=== PATIENT | male | born 1945 | race African-American/Black ===

== ENCOUNTER 2020-07-21 13:42 | Emergency (ER) | payer MEDICARE, OTHER ==
[~2020-07-21] VITALS: Ht 175.3 cm; Wt 113.4 kg
[2020-07-21 14:31] VITALS: BP 126/74
[2020-07-21] MEDS ORDERED: ASPirin 81 mg TAB PO ONE (15:00)
[2020-07-21 15:35] LABS: Basophils # (auto) 0 10 ^3/uL (0-0.2); Basophils % (auto) 0.9 % (0.0-2.0); Eosinophils # (auto) 0.3 10 ^3/uL (0-0.8); Hematocrit 43.8 % (41.0-53.0); Hemoglobin 14.5 g/dL (13.5-17.5); Lymphocytes # (auto) 2.1 10 ^3/uL (0.4-5.4); Lymphocytes % (auto) 43.2 % (10.0-50.0); Mean Corpuscular Hemoglobin 29.1 pg (28.0-32.0); Mean Corpuscular Hgb Conc. 33.2 g/dL (32.0-36.0); Mean Corpuscular Volume 87.7 fL (80.0-100.0); Monocytes # (auto) 0.6 10 ^3/uL (0-1.3); Monocytes % (auto) 12.7 % (0.0-12.0); Neutrophils # (auto) 1.8 10 ^3/uL (1.6-8.6); Neutrophils % (auto) 37.2 % (37.0-80.0); Nucleated Red Blood Cells % 0.1 %; Platelet Count (auto) 209 10^3/uL (140-450); Red Blood Cells 4.99 10^6/uL (4.5-5.90); Red Cell Distribution Width 13.6 % (11.8-14.3)
[2020-07-21 15:54] LABS: Alanine Aminotransferase 32 U/L (16-61); Albumin 3.8 g/dL (3.4-5.0); Anion Gap 4 (5-15); Aspartate Aminotransferase 15 U/L (15-37); BUN/Creatinine Ratio 13.6; Blood Urea Nitrogen 15 mg/dL (7-18); Calcium 9.5 mg/dL (8.5-10.1); Carbon Dioxide 30 mmol/L (21-32); Chloride 104 mmol/L (98-107); GFR African American 84 mL/min; GFR Non-African American 69 mL/min; Glucose 90 mg/dL (74-106); INR 1.04 (0.9-1.15); Magnesium 2.3 mg/dL (1.6-2.6); Partial Thromboplastin Time 26.7 sec (23.0-31.2); Potassium 4.4 mmol/L (3.5-5.1); Sodium 138 mmol/L (136-145)
[2020-07-21 15:59] LABS: Alkaline Phosphatase 60 U/L (45-117); Bilirubin, Total 0.9 mg/dL (0.2-1.0)
== END 2020-07-21 16:20 | disposition left against medical advice (07) ==
LOC: ER 13:42
DX: R07.89 Other chest pain (principal)
CPT/HCPCS: 36415; 71046; 80053; 83735; 83880; 84443; 84484; 85025; 85610; 85730; 93005

== ENCOUNTER 2020-08-11 02:05 | Emergency (ER) | payer MEDICARE, OTHER ==
[~2020-08-11] VITALS: Ht 167.6 cm; Wt 113.4 kg
[2020-08-11 04:52] LABS: Basophils # (auto) 0 10 ^3/uL (0-0.2); Basophils % (auto) 0.7 % (0.0-2.0); Eosinophils # (auto) 0.4 10 ^3/uL (0-0.8); Eosinophils % (auto) 6.4 % (0.0-7.0); Hematocrit 41.8 % (41.0-53.0); Lymphocytes # (auto) 2.3 10 ^3/uL (0.4-5.4); Lymphocytes % (auto) 39.4 % (10.0-50.0); Mean Corpuscular Hemoglobin 29.5 pg (28.0-32.0); Mean Corpuscular Hgb Conc. 33.6 g/dL (32.0-36.0); Mean Corpuscular Volume 87.8 fL (80.0-100.0); Monocytes # (auto) 0.6 10 ^3/uL (0-1.3); Monocytes % (auto) 10.9 % (0.0-12.0); Neutrophils # (auto) 2.5 10 ^3/uL (1.6-8.6); Neutrophils % (auto) 42.6 % (37.0-80.0); Nucleated Red Blood Cells % 0.4 %; Platelet Count (auto) 221 10^3/uL (140-450); Red Blood Cells 4.77 10^6/uL (4.5-5.90)
[2020-08-11 05:03] LABS: Albumin 3.4 g/dL (3.4-5.0); Anion Gap 6 (5-15); Blood Urea Nitrogen 19 mg/dL (7-18); Calcium 9.2 mg/dL (8.5-10.1); Carbon Dioxide 27 mmol/L (21-32); Chloride 108 mmol/L (98-107); Glucose 93 mg/dL (74-106); Potassium 4.7 mmol/L (3.5-5.1); Sodium 141 mmol/L (136-145)
[2020-08-11 05:11] LABS: Alanine Aminotransferase 34 U/L (16-61); Alkaline Phosphatase 58 U/L (45-117); Aspartate Aminotransferase 21 U/L (15-37); BUN/Creatinine Ratio 14.7; Bilirubin, Total 0.5 mg/dL (0.2-1.0); GFR African American 70 mL/min; GFR Non-African American 58 mL/min; Total Protein 7.5 g/dL (6.4-8.2)
[2020-08-11 07:57] VITALS: BP 122/70
== END 2020-08-11 08:49 | disposition home or self-care (01) ==
LOC: ER 02:05
DX: R07.89 Other chest pain (principal); I10 Essential (primary) hypertension; Z86.73 Personal history of transient ischemic attack (TIA), and cerebral infarction without residual deficits
CPT/HCPCS: 36415; 71045; 80053; 83880; 84484; 85025; 93005

== ENCOUNTER 2020-12-19 08:15 | Emergency (ER) | payer MEDICARE, OTHER ==
[~2020-12-19] VITALS: Ht 175.3 cm; Wt 108.9 kg
[2020-12-19] MEDS ORDERED: ASPirin 81 mg TAB PO ONE (09:00)
[2020-12-19 09:31] LABS: Basophils # (auto) 0.1 10 ^3/uL (0-0.2); Basophils % (auto) 0.9 % (0.0-2.0); Eosinophils # (auto) 0.4 10 ^3/uL (0-0.8); Eosinophils % (auto) 6.5 % (0.0-7.0); Hematocrit 43.1 % (41.0-53.0); Hemoglobin 14.6 g/dL (13.5-17.5); Lymphocytes # (auto) 3.2 10 ^3/uL (0.4-5.4); Lymphocytes % (auto) 53.8 % (10.0-50.0); Mean Corpuscular Hemoglobin 29.4 pg (28.0-32.0); Mean Corpuscular Hgb Conc. 33.8 g/dL (32.0-36.0); Mean Corpuscular Volume 87.1 fL (80.0-100.0); Monocytes # (auto) 0.6 10 ^3/uL (0-1.3); Neutrophils # (auto) 1.6 10 ^3/uL (1.6-8.6); Neutrophils % (auto) 27.8 % (37.0-80.0); Nucleated Red Blood Cells % 0.2 %; Platelet Count (auto) 221 10^3/uL (140-450); Red Blood Cells 4.95 10^6/uL (4.5-5.90); Red Cell Distribution Width 13.7 % (11.8-14.3); White Blood Cell 5.9 10^3/uL (4.4-10.8)
[2020-12-19 09:44] LABS: Albumin 3.6 g/dL (3.4-5.0); Anion Gap 9 (5-15); Blood Urea Nitrogen 18 mg/dL (7-18); Calcium 9.2 mg/dL (8.5-10.1); Carbon Dioxide 22 mmol/L (21-32); Chloride 110 mmol/L (98-107); Glucose 90 mg/dL (74-106); Potassium 3.6 mmol/L (3.5-5.1); Sodium 141 mmol/L (136-145)
[2020-12-19 09:50] LABS: Alanine Aminotransferase 23 U/L (16-61); Alkaline Phosphatase 53 U/L (45-117); Aspartate Aminotransferase 15 U/L (15-37); BUN/Creatinine Ratio 14.3; Bilirubin, Total 0.8 mg/dL (0.2-1.0); GFR African American 72 mL/min; GFR Non-African American 59 mL/min; Total Protein 7.4 g/dL (6.4-8.2)
[2020-12-19 11:11] LABS: Urine Bacteria FEW /hpf (None Seen); Urine Blood Negative /uL (Negative); Urine Mucus FEW (None Seen); Urine WBC 2 /hpf (0 - 3)
[2020-12-19 11:21] VITALS: BP 117/76
== END 2020-12-19 11:12 | disposition home or self-care (01) ==
LOC: ER 08:15
DX: R07.89 Other chest pain (principal); I10 Essential (primary) hypertension; Z86.73 Personal history of transient ischemic attack (TIA), and cerebral infarction without residual deficits
CPT/HCPCS: 36415; 71045; 80053; 81001; 83880; 84484; 85025; 93005

== ENCOUNTER 2023-08-12 01:18 | Inpatient (IN) | payer MEDICARE, OTHER ==
[~2023-08-12] VITALS: Ht 175.3 cm; Wt 125.6 kg
[2023-08-12 01:35] LABS: Hematocrit 43.5 % (41.0-53.0); Hemoglobin 14.2 g/dL (13.5-17.5); Mean Corpuscular Hemoglobin 28.6 pg (28.0-32.0); Mean Corpuscular Hgb Conc. 32.5 g/dL (32.0-36.0); Mean Corpuscular Volume 87.8 fL (80.0-100.0); Red Blood Cells 4.96 10^6/uL (4.5-5.90); Red Cell Distribution Width 14.3 % (11.8-14.3); White Blood Cell 8.2 10^3/uL (4.4-10.8)
[2023-08-12 01:53] LABS: Alanine Aminotransferase 32 U/L (7-40); Albumin 4.4 g/dL (3.2-4.8); Alkaline Phosphatase 51 U/L (46-116); Anion Gap 7 (5-15); Aspartate Aminotransferase 17 U/L (13-40); BUN/Creatinine Ratio 9.9 (10.0-20.0); Blood Urea Nitrogen 12 mg/dL (9-23); Calcium 9.4 mg/dL (8.7-10.4); Carbon Dioxide 28 mmol/L (20-30); Chloride 106 mmol/L (98-107); Glucose 92 mg/dL (74-106); Magnesium 1.9 mg/dL (1.6-2.6); Sodium 141 mmol/L (136-145)
[2023-08-12 01:54] LABS: Bilirubin, Total 1.1 mg/dL (0.2-1.0); Total Protein 7.3 g/dL (5.7-8.2)
[2023-08-12 02:00] LABS: Band Neutrophils % (manual) 0; Basophils % (manual) 0 (0.0-2.0); Blast Cells 0; INR 1.07 (0.9-1.15); Metamyelocytes % 0; Myelocytes % 0; Partial Thromboplastin Time 27.9 SEC (24.5-34.5); Promyelocytes % 0; Prothrombin Time 11.2 sec (9.3-11.8)
[2023-08-12 02:16] LABS: Eosinophils % (manual) 4 (0-7); Lymphocytes % (manual) 62 (10.0-50.0); Monocytes % (manual) 7 (0-12); Platelet Estimate Adequate; RBC Morphology Normal; Reactive Lymphocytes 1
[2023-08-12] MEDS ORDERED: PANTOPRAZOLE 80 MG in SODIUM CHL 0.9% 100 ML IV ONE (02:45)
[2023-08-12] MEDS ORDERED: ONDANSETRON HCL 4 MG/2 ML VIAL IV ONE (02:45)
[2023-08-12] MEDS ORDERED: MORPHINE SULFATE 4 MG/ML SYR/VIAL IV ONE (02:45)
[2023-08-12] MEDS ORDERED: ASPirin 81 mg TAB PO ONE (02:45)
[2023-08-12] MEDS ORDERED: ACETAMINOPHEN 325 MG TAB PO ONE (02:45)
[2023-08-12] MEDS ORDERED: NITROGLYCERIN 0.4MG/HR TOPICAL PATCH TD ONE (02:45)
[2023-08-12 03:01] LABS: Urine Bacteria NONE SEEN /hpf (None Seen); Urine Blood TRACE /uL (Negative); Urine Clarity Clear (Clear); Urine Color Yellow (Yellow); Urine Hyaline Cast FEW /lpf (0 - 2); Urine Mucus FEW (None Seen); Urine Protein, UAD TRACE (Negative); Urine Specific Gravity 1.025 (1.001-1.035); Urine Urobilinogen Normal (Negative); Urine WBC 3 /hpf (0 - 3); Urine pH 5.5 (5.0-8.0)
[2023-08-12 03:15] VITALS: PULSE 58; RESP 10; O2SAT 94
[2023-08-12] MEDS ORDERED: ONDANSETRON HCL 4 MG/2 ML VIAL IV PRN (04:15)
[2023-08-12] MEDS ORDERED: ACETAMINOPHEN 325 MG TAB PO PRN (04:15)
[2023-08-12] MEDS ORDERED: HYDROcodone-ACET 5/325MG TAB PO PRN (04:15)
[2023-08-12] MEDS ORDERED: DOCUSATE SOD 100 MG CAP PO PRN (04:15)
[2023-08-12] MEDS ORDERED: MORPHINE SULFATE INJ 2 MG/ml SYRG IV PRN ×2 (04:15→05:45)
[2023-08-12] MEDS ORDERED: hydrALAZINE HCL 20 MG/ML VL IV PRN (04:15)
[2023-08-12 05:42] LABS: COVID19 ANTIGEN SOFIA FIA NEGATIVE (NEGATIVE); Rapid Influenza A Negative (Negative); Rapid Influenza B Negative (Negative)
[2023-08-12] MEDS ORDERED: NITROGLYCERIN 0.4 MG SL TAB SL PRN (05:45)
[2023-08-12 05:53] LABS: Alanine Aminotransferase 23 U/L (7-40); Albumin 3.3 g/dL (3.2-4.8); Alkaline Phosphatase 36 U/L (46-116); Anion Gap 9 (5-15); Aspartate Aminotransferase 19 U/L (13-40); BUN/Creatinine Ratio 13.1 (10.0-20.0); Bilirubin, Total 0.8 mg/dL (0.2-1.0); Blood Urea Nitrogen 11 mg/dL (9-23); Calcium 7.2 mg/dL (8.7-10.4); Carbon Dioxide 21 mmol/L (20-30); Chloride 115 mmol/L (98-107); Glucose 83 mg/dL (74-106); Potassium 3.5 mmol/L (3.5-5.1); Sodium 145 mmol/L (136-145); Total Protein 5.5 g/dL (5.7-8.2)
[2023-08-12] MEDS: SODIUM CHLOR 0.9% PF (SALINE LOCK) 10ML VIAL/SYR IV SCH ×3 (05:59→21:14)
[2023-08-12 08:00] VITALS: PULSE 62; RESP 10; O2SAT 95
[2023-08-12 10:39] LABS: Free T3 3.05 pg/mL (2.3-4.2); Free T4 (Free Thyroxine) 0.95 ng/dL (0.89-1.76)
[2023-08-12] MEDS: PANTOPRAZOLE 40 MG/10 ML VIAL INJ IV SCH (11:07)
[2023-08-12] MEDS: ASPirin 81 mg TAB PO SCH (11:07)
[2023-08-12 16:24] VITALS: BP 116/59; PULSE 60; RESP 18; TEMP 97.8; O2SAT 98
[2023-08-12 17:00] VITALS: BP 134/60; PULSE 63; RESP 18; TEMP 97.3; O2SAT 95
[2023-08-12 20:00] VITALS: PULSE 57
[2023-08-12] MEDS: ATORVASTATIN 20 MG TAB PO SCH (21:14)
[2023-08-13] VITALS (8 sets, daily range): BP systolic 100–117; BP diastolic 62–77; PULSE 58–94; RESP 18–20; TEMP 97.4–98.7; O2SAT 94–97
[2023-08-13 06:07] LABS: Basophils # (auto) 0 10 ^3/uL (0-0.2); Basophils % (auto) 0.4 % (0.0-2.0); Eosinophils # (auto) 0.3 10 ^3/uL (0-0.8); Hemoglobin 13.3 g/dL (13.5-17.5); Lymphocytes # (auto) 3.5 10 ^3/uL (0.4-5.4); Mean Corpuscular Hgb Conc. 33.2 g/dL (32.0-36.0); Mean Corpuscular Volume 87.4 fL (80.0-100.0); Monocytes # (auto) 0.6 10 ^3/uL (0-1.3); Monocytes % (auto) 9.3 % (0.0-12.0); Neutrophils # (auto) 2.1 10 ^3/uL (1.6-8.6); Neutrophils % (auto) 32.3 % (37.0-80.0); Nucleated Red Blood Cells % 0.1 %; Red Blood Cells 4.58 10^6/uL (4.5-5.90); Red Cell Distribution Width 14.4 % (11.8-14.3); White Blood Cell 6.4 10^3/uL (4.4-10.8)
[2023-08-13 06:17] LABS: Alanine Aminotransferase 24 U/L (7-40); Albumin 3.9 g/dL (3.2-4.8); Alkaline Phosphatase 42 U/L (46-116); Anion Gap 4 (5-15); Aspartate Aminotransferase 14 U/L (13-40); BUN/Creatinine Ratio 9.8 (10.0-20.0); Blood Urea Nitrogen 11 mg/dL (9-23); Calcium 9.3 mg/dL (8.7-10.4); Carbon Dioxide 28 mmol/L (20-30); Chloride 108 mmol/L (98-107); Glucose 99 mg/dL (74-106); Potassium 4.4 mmol/L (3.5-5.1); Sodium 140 mmol/L (136-145)
[2023-08-13 06:18] LABS: Bilirubin, Total 1.5 mg/dL (0.2-1.0); Total Protein 6.5 g/dL (5.7-8.2)
[2023-08-13] MEDS: PANTOPRAZOLE 40 MG/10 ML VIAL INJ IV SCH (10:05)
[2023-08-13] MEDS: ASPirin 81 mg TAB PO SCH (10:05)
[2023-08-13] MEDS: SODIUM CHLOR 0.9% PF (SALINE LOCK) 10ML VIAL/SYR IV SCH ×2 (14:00→21:01)
[2023-08-13] MEDS: ATORVASTATIN 20 MG TAB PO SCH (21:01)
[2023-08-14 04:42] VITALS: BP 116/75; PULSE 60; RESP 16; TEMP 98.1; O2SAT 97
[2023-08-14] MEDS: SODIUM CHLOR 0.9% PF (SALINE LOCK) 10ML VIAL/SYR IV SCH ×2 (06:04→13:06)
[2023-08-14] MEDS ORDERED: ADENOSINE 106 MG in GIVE UN-DILUTED 0 ML IV ONE (07:45)
[2023-08-14 08:00] VITALS: PULSE 56; PULSE 61; RESP 16; O2SAT 99
[2023-08-14 08:44] VITALS: BP 118/72; PULSE 56; RESP 16; TEMP 98.5; O2SAT 99
[2023-08-14] MEDS ORDERED: PANTOPRAZOLE 40 MG TAB PO SCH (10:00)
[2023-08-14] MEDS: ASPirin 81 mg TAB PO SCH (10:11)
[2023-08-14 12:38] VITALS: BP 118/67; PULSE 65; RESP 17; TEMP 97.6; O2SAT 95
== END 2023-08-14 13:55 | disposition home or self-care (01) | DRG 303 ==
LOC: ER 01:18 → TELE 05:44 → TELE-EAST 16:11
PROVIDERS: ADMIT Nurse Practitioner Family; ATTEND Internal Medicine
DX: I25.10 Atherosclerotic heart disease of native coronary artery without angina pectoris (principal); Z68.41 Body mass index [BMI] 40.0-44.9, adult; I10 Essential (primary) hypertension; E03.9 Hypothyroidism, unspecified; E66.9 Obesity, unspecified; E78.5 Hyperlipidemia, unspecified; Z20.822 Contact with and (suspected) exposure to COVID-19; I48.91 Unspecified atrial fibrillation; Z80.0 Family history of malignant neoplasm of digestive organs; Z82.49 Family history of ischemic heart disease and other diseases of the circulatory system
CPT/HCPCS: 36415; 71045; 78452; 80053; 81001; 83735; 84439; 84443; 84481; 84484; 85007; 85025; 85027; 85610; 85730; 87426; 87804; 93005; 93017; 93306; 96374; C9113; G0378; J0153

== ENCOUNTER 2025-03-08 12:09 | Emergency (ER) | payer OTHER, MEDICARE ==
[~2025-03-08] VITALS: Ht 175.3 cm; Wt 113.8 kg
--- NOTE | 2025-03-08 13:31 | ED.PDOC ---
HPI Comments Patient is a 79-year-old male with a past medical history of hypertension, hyperlipidemia, questionable Bradycardia presented to the ED with a chief complaint of chest pain. Patient reported that the chest pain started at rest earlier in the morning today located on left side of the chest, pressure-like feeling like a muscle pull, radiating to the back of the left shoulder, occurred at rest. Patient denied any nausea, vomiting, shortness of breath, palpitations, sweating. Patient took his morning medications including aspirin and currently reports that the pain has decreased in intensity. Patient reports having a similar chest pain about 8-9 months ago and was admitted in the hospital for 2-3, no coronary intervention was done. Patient had undergone stress test in the past which according with the patient did not show any ischemic changes. Chief Complaint: Chest Pain Time Seen by MD: 12:18 Primary Care Provider: OUT OF AREA Allergies: Coded Allergies: NO KNOWN ALLERGIES (Unverified , 07/21/20) Home Meds No Active Prescriptions or Reported Meds Mode of Arrival: Ambulatory Severity: Mild Timing: Hours Duration: Since onset, Intermittent Location: Chest (L) Radiation: Shoulder (L) Quality: Pressure, Tightness Onset: At Rest Cardiac Risk Factors: Hyperlipidemia, HTN PE Risk Factors: None History of: Similar pain in past Associated Signs and Symptoms: None Past Medical History PAST MEDICAL HISTORY: HTN, TIA Surgical History: Hernia Repair Family History Family History: Family hx of DM, Family hx of Kidney darshana Social History Smoker: Non-Smoker Alcohol: Denies ETOH Use Drugs: Denies Drug Use Lives In: Home Constitutional: denies: chills, diaphoresis, fatigue, fever, malaise, sweats, weakness, others EENTM: denies: blurred vision, double vision, ear bleeding, ear discharge, ear drainage, ear pain, ear ringing, eye pain, eye redness, hearing loss, mouth pain, mouth swelling, nasal discharge, nose bleeding, nose congestion, nose pain, photophobia, tearing, throat pain, throat swelling, voice changes, others Respiratory: denies: cough, hemoptysis, orthopnea, SOB at rest, shortness of breath, SOB with excertion, stridor, wheezing, others Cardiovascular: reports: chest pain Gastrointestinal: denies: abdomen distended, abdominal pain, blood streaked bowels, constipated, diarrhea, dysphagia, difficulty swallowing, hematemesis, melena, nausea, poor appetite, poor fluid intake, rectal bleeding, rectal pain, vomiting, others Genitourinary: denies: burning, dysuria, flank pain, frequency, hematuria, incontinence, penile discharge, penile sore, pain, testicle pain, testicle swelling, urgency, others Neurological: denies: dizziness, fainting, headache, left sided numbness, left sided weakness, numbness, paresthesia, pre-existing deficit, right sided numbness, right sided weakness, seizure, speech problems, tingling, tremors, weakness, others Musculoskeletal: denies: back pain, gout, joint pain, joint swelling, muscle pain, muscle stiffness, neck pain, others Integumetry: denies: bruises, change in color, change in hair/nails, dryness, laceration, lesions, lumps, rash, wounds, others Allergic/Immunocompromised: denies: Difficulty Healing, Frequent Infections, Hives, Itching, others Hematologic/Lymphatic: denies: anemia, blood clots, easy bleeding, easy bruising, swollen glands, others Endocrine: denies: excessive hunger, excessive sweating, excessive thirst, excessive urination, flushing, intolerance to cold, intolerance to heat, unexp lained weight gain, unexplained weight loss, others Psychiatric: denies: anxiety, bipolar disorder, depression, hopeless, panic disorder, schizophrenia, sleepless, suicidal, others Physical Exam General Appearance: No Apparent Distress, Normal HEENT: Normal ENT Inspection, Pharynx Normal, TMs Normal Neck: Full Range of Motion, Non-Tender, Normal, Normal Inspection Respiratory: Chest Non-Tender, Lungs Clear, No Accessory Muscle Use, No Respiratory Distress, Normal Breath Sounds Cardiovascular: No Edema, No JVD, No Murmur, No Gallop, Normal Peripheral Pulses, Regular Rate/Rhythm Breast Exam: Deferred Gastrointestinal: No Organomegaly, Non Tender, No Pulsatile Mass, Normal Bowel Sounds, Soft Genitalia: Deferred Pelvic: Deferred Rectal: Deferred Extremities: No calf tenderness, Normal capillary refill, Normal inspection, Normal range of motion, Non-tender, No pedal edema Neurologic: Alert, associate research scientist II-XII nml as Tested, No Motor Deficits, Normal Affect, Normal Mood, No Sensory Deficits Cerebellar Function: Normal Reflexes: Normal Skin: Dry, Normal Color, Warm Peripheral Pulses: 2+ carotid (R), 2+ carotid (L), 2+ femoral (R), 2+ femoral (L), 2+ dorsalis pedis (R), 2+ dorsalis pedis (L), 2+ Radial (R), 2+ Radial (L) Lymphatic: No Adenopathy EKG EKG : Pulse Rate (adult): 82 [place]: Normal Cardiac Rhythm: NSR Block: None Hypertrophy: None ST: Normal Was a procedure done? Was a procedure done?: No CP Differential Dx Differential Diagnosis: Other Differential Diagnosis: Angina, Chest Wall Pain, Costochondritis, Gastritis X-Ray, Labs, Meds, VS Vital Signs Date Time Temp Pulse Resp B/P (MAP) Pulse Ox O2 Delivery O2 Flow Rate FiO2 03/08/25 14:53 98.1 60 16 130/82 (98) 96 98.1 03/08/25 13:31 82 03/08/25 13:30 62 03/08/25 12:22 98.3 76 17 140/80 (100) 97 98.3 03/08/25 12:16 79 Lab Test 03/08/25 15:38 03/08/25 13:34 03/08/25 12:38 Range/Units Troponin I High Sensitivity 10 7 5 </=54 ng/L White Blood Count 5.4 4.4-10.8 10^3/uL Red Blood Count 4.71 4.5-5.90 10^6/uL Hemoglobin 13.4 L 13.5-17.5 g/dL Hematocrit 39.9 L 41.0-53.0 % Mean Corpuscular Volume 84.7 80.0-100.0 fL Mean Corpuscular Hemoglobin 28.4 28.0-32.0 pg Mean Corpuscular Hemoglobin Concent 33.5 32.0-36.0 g/dL Red Cell Distribution Width 14.7 H 11.8-14.3 % Platelet Count 191 140-450 10^3/uL Mean Platelet Volume 8.5 6.9-10.8 fL Neutrophils (%) (Auto) 34.1 L 37.0-80.0 % Lymphocytes (%) (Auto) 48.9 10.0-50.0 % Monocytes (%) (Auto) 9.5 0.0-12.0 % Eosinophils (%) (Auto) 6.8 0.0-7.0 % Basophils (%) (Auto) 0.7 0.0-2.0 % Neutrophils # (Auto) 1.8 1.6-8.6 10 ^3/uL Lymphocytes # (Auto) 2.6 0.4-5.4 10 ^3/uL Monocytes # (Auto) 0.5 0-1.3 10 ^3/uL Eosinophils # (Auto) 0.4 0-0.8 10 ^3/uL Basophils # (Auto) 0 0-0.2 10 ^3/uL Nucleated Red Blood Cells 0.0 % Sodium Level 143 136-145 mmol/L Potassium Level 4.0 3.5-5.1 mmol/L Chloride Level 108 H 98-107 mmol/L Carbon Dioxide Level 25 20-31 mmol/L Anion Gap 10 5-15 Blood Urea Nitrogen 13 9-23 mg/dL Creatinine 1.15 0.700-1.30 mg/dL Glomerular Filtration Rate Calc 64 >90 mL/min BUN/Creatinine Ratio 11.3 10.0-20.0 Serum Glucose 104 74-106 mg/dL Calcium Level 10.3 8.7-10.4 mg/dL Patient is a 79-year-old male presented to the ED with a chief complaint of chest pain which was on the left side, radiating to the left shoulder, 6/10 in intensity and occurred at rest following which the patient presented to the ED. ECG showed sinus rhythm without any evidence of ST or T-wave changes. Serial troponin levels were within normal limits. Given the patient's risk factors not limited to hypertension, previous history of chest pain , patient was advised inpatient workup with a it infrastructure engineer with the patient denied and undresses the risks of leaving against medical advice. Patient left against medical advice Time of 1ST Reevaluation: 14:30 Reevaluation 1ST: Improved Patient Education/Counseling: Diagnosis, Treatment, Prognosis Family Education/Counseling: No Family Present SEPSIS Sepsis Screen Date sepsis recognized/suspect: Mar 08, 2025 Time Sepsis recognized/suspect: 1211 Recent Procedure: No On Antibiotic Therapy: No Respiratory Rate >20: No Heart Rate >90: No Temp<36 C (96.8 F) or >38.3 C: No SBP <90 or MAP <65 mmHG: No New Acute Mental Status Change: No Is the patient on CPAP, BIPAP,: No Physician Orders Electrocardigram (03/08/25 13:17) Electrocardigram (03/08/25 15:17) Vital Signs Date Time Temp Pulse Resp B/P (MAP) Pulse Ox O2 Delivery O2 Flow Rate FiO2 03/08/25 14:53 98.1 60 16 130/82 (98) 96 98.1 03/08/25 13:31 82 03/08/25 13:30 62 03/08/25 12:22 98.3 76 17 140/80 (100) 97 98.3 03/08/25 12:16 79 Laboratory Tests Test 03/08/25 12:38 White Blood Count 5.4 10^3/uL (4.4-10.8) Departure 1 Departure Time of Disposition: 17:15 Impression: Primary Impression: Chest pain Additional Impressions: Angina pectoris History of hypertension Disposition: LEFT AGAINST MEDICAL ADVICE Condition: Unstable e-Prescriptions No Active Prescriptions or Reported Meds Critical Care Note Critical Care Time?: No Stability Stability form required: No Heart Score Heart Score: Heart Score Response (Comments) Value History Moderate Suspicious 1 EKG Normal 0 Age >65 2 Risk Factors >3 or Hx ASHD 2 Troponin Normal limit 0 Total 5 JUAN WILKS RESIDENT Mar 08, 2025 13:31
--- NOTE | 2025-03-08 13:31 | ECG ---
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
[2025-03-08 14:05] LABS: Hematocrit 39.9 % (41.0-53.0); Hemoglobin 13.4 g/dL (13.5-17.5); Mean Corpuscular Hemoglobin 28.4 pg (28.0-32.0); Mean Corpuscular Volume 84.7 fL (80.0-100.0); Nucleated Red Blood Cells % 0.0 %
[2025-03-08 14:15] LABS: Potassium 4.0 mmol/L (3.5-5.1); Sodium 143 mmol/L (136-145)
[2025-03-08 14:16] LABS: Anion Gap 10 (5-15); Calcium 10.3 mg/dL (8.7-10.4); Carbon Dioxide 25 mmol/L (20-31)
[2025-03-08 14:19] LABS: Chloride 108 mmol/L (98-107)
[2025-03-08 14:21] LABS: BUN/Creatinine Ratio 11.3 (10.0-20.0); Blood Urea Nitrogen 13 mg/dL (9-23); Glucose 104 mg/dL (74-106)
[2025-03-08 14:53] VITALS: BP 130/82; PULSE 60; RESP 16; TEMP 98.1; O2SAT 96
--- NOTE | 2025-03-09 07:54 | ECG ---
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
== END 2025-03-08 18:29 | disposition left against medical advice (07) ==
LOC: ER 12:09
DX: I20.9 Angina pectoris, unspecified (principal); R07.89 Other chest pain; I10 Essential (primary) hypertension; E78.5 Hyperlipidemia, unspecified; Z86.73 Personal history of transient ischemic attack (TIA), and cerebral infarction without residual deficits; Z98.890 Other specified postprocedural states
CPT/HCPCS: 36415; 80048; 84484; 85025; 93005